=== PATIENT | female | born 2000 | race Caucasian/White ===

== ENCOUNTER 2019-10-17 10:00 | Outpatient (CLI) | payer OTHER, SELFPAY ==
[2019-10-17] MEDS: HEPARIN SOD FLUSH 500 UNITS/5 ML SYRINGE IV PUSH (10:28)
[2019-10-17] MEDS: SALINE LOCK FLUSH 2 ML IV PUSH (10:39)
--- NOTE | 2019-10-17 10:39 | PC.NURSE ---
Pt to room 201 amb. a&ox3. Port to right chest accessed using power port needle. Port flushed with 5ml NS followed by 500 units of heparin. Port deaccessed, needel intact, site without redness, edema or drainage. Pt tolerated well. Discharged to home amb with mother.
== END 2019-10-17 10:01 | disposition home or self-care (01) ==
PROVIDERS: PCP Pediatrics; Visit Provider Pediatrics
DX: E84.9 Cystic fibrosis, unspecified (principal)
CPT/HCPCS: 96523

== ENCOUNTER 2019-11-18 09:02 | Outpatient (CLI) | payer OTHER, SELFPAY ==
--- NOTE | 2019-11-18 09:18 | PC.NURSE ---
Patient here for port a cath flush. Port flush administered. Tolerated it well. Safe exit of hospital.
[2019-11-18] MEDS: HEPARIN SOD FLUSH 500 UNITS/5 ML SYRINGE IV PUSH (09:22)
== END 2019-11-18 09:03 | disposition home or self-care (01) ==
PROVIDERS: PCP Pediatrics
DX: E84.9 Cystic fibrosis, unspecified (principal)
CPT/HCPCS: 99211; G0463

== ENCOUNTER 2019-12-18 13:03 | Outpatient (CLI) | payer OTHER, SELFPAY ==
[2019-12-18] MEDS: HEPARIN SOD FLUSH 500 UNITS/5 ML SYRINGE IV PUSH (13:20)
--- NOTE | 2019-12-18 15:50 | PC.NURSE ---
Pt to room 206 amb per self. Has no complaints. Port accessed per protocol without difficulty. Port flushed with NS and heparin as ordered. Port needle removed, intact. Site without redness,edema or drainage. Bandaid applied, pt tolerated well. Discharged to home amb per self without complaints.
== END 2019-12-18 13:04 | disposition home or self-care (01) ==
PROVIDERS: PCP Pediatrics
DX: E84.9 Cystic fibrosis, unspecified (principal)
CPT/HCPCS: 99211; G0463